=== PATIENT | female | born 1990 | race Caucasian/White ===

== ENCOUNTER 2022-10-31 08:32 | Day surgery (SDC) | payer OTHER ==
[~2022-10-31] VITALS: Ht 167.6 cm; Wt 104.5 kg
--- NOTE | ~2022-10-31 | OR ---
[facility] [address] [place], [place] [address] Draft DATE OF OPERATION: 10/31/2022 SURGEON: Macho Russell DO PREOPERATIVE DIAGNOSIS: Dysmenorrhea. POSTOPERATIVE DIAGNOSIS: Dysmenorrhea, patent fallopian tubes bilaterally. PROCEDURE: Diagnostic laparoscopy and chromotubation. CATHEAD WORKER: Crews. ANESTHESIA: General. COMPLICATIONS: None. BLOOD LOSS: Five mils. FINDINGS: Normal-appearing uterus, bilateral tubes and ovaries. No endometriosis seen overlying bladder in cul-de-sac or bilateral ovarian fossa, mild fatty infiltrates noted on the liver margin, surgically absent gallbladder. No endometriosis lesions on peritoneum or observed on bowel. INDICATIONS: The patient is a 32-year-old female with history of dysmenorrhea, who has been trying to conceive. Risks, benefits, and alternatives to diagnostic laparoscopy with chromotubation were discussed and she elected to proceed. DESCRIPTION OF PROCEDURE: The patient was taken back to the operating room where she was placed under general anesthesia and positioned in dorsal lithotomy. She was prepped and draped in normal sterile fashion. Weighted speculum was placed in the vagina. The anterior lip of the PATIENT NAME: MADONNA CAVAZOS OPERATIVE REPORT DATE OF : 86 REPORT #: [id number] PHYSICIAN: MACHO RUSSELL DO PCP: JUANITO REICH PA-C REPORT IS CONFIDENTIAL AND NOT TO BE RELEASED WITHOUT AUTHORIZATION [facility] [address] [place], [place] [address] Draft cervix was grasped with an Allis clamp and acorn uterine manipulator was placed without difficulty. Surgeon's gloves were changed and attention was turned to the abdomen where incision was made with a scalpel directly infraumbilically through a prior scar after infiltration with local anesthetic. Incision was carried down to the underlying fascia with blunt and sharp dissection with Metzenbaum scissors. Fascia was grasped with hemostats, elevated and incised with Metzenbaum scissors. Stay suture was placed on each superior and inferior margin of the fascia with 0 Vicryl and peritoneum was entered bluntly. Danyell retractor was placed after finger sweep confirmed lack of adhesions and pneumoperitoneum was achieved with CO2 gas. The patient was positioned in Trendelenburg to facilitate better visualization of the pelvis and left lower quadrant 5 mm trocar was placed under direct visualization also after infiltration with local anesthetic without complication. Blunt grasper was used to retract the bowel from the pelvis and pelvis was surveyed with normal findings as noted above. Dilute methylene blue in normal saline was slowly injected through the acorn uterine manipulator with spillage of dye noted at bilateral tubes. All instrumentation was removed. Pneumoperitoneum was evacuated. Fascia was closed with 0 Vicryl in a running fashion. Stay sutures were tied over top of fascial closure. Skin was closed with 4-0 Monocryl and instrumentation was removed from the vagina. Sponge and instrument counts were correct. The patient was taken to recovery in stable and satisfactory condition. DO OLVIN Alvarez/MODL /[id number] Copies: ~ PATIENT NAME: MACYMADONNA ROSE OPERATIVE REPORT DATE OF : 86 REPORT #: [id number] PHYSICIAN: MACHO RUSSELL DO PCP: JUANITO REICH PA-C REPORT IS CONFIDENTIAL AND NOT TO BE RELEASED WITHOUT AUTHORIZATION
[~2022-10-31 08:32] MED LIST: ZOFRAN ODT4 MG PO
--- NOTE | 2022-10-31 11:07 | NUR ---
10/31/22 1107 Sheets,Valeria 1054 PT ARRIVED TO PACU ON 6L VIA MASK, PT ASLEEP AND SNORING NOTED. 1100 PT WOKE TO TACTILE STIMULI AND STARTS REACHING FOR HER FACE. O2 MASK REMOVED. PT REORIENTED TO PACU. PT DENIES PAIN AND NAUSEA.
--- NOTE | 2022-10-31 14:43 | NUR ---
1135: PATIENT BACK IN DAY SURGERY ROOM FROM PACU. RATES PAIN 3/10. DROWSY. ABDOMINAL INCISIONS X 2 WNL. IV SITE WNL. SCDs ON. VS CHECKED. PATIENT GIVEN ICE WATER, CRACKERS AND JELLO. CALLED AND INFORMED THAT PATIENT IS BACK IN DAY SURGERY ROOM. CALL LIGHT WITHIN REACH. 1155: PATIENT TOLERATING WATER, CRACKERS, AND JELLO. MEDICATED FOR PAIN WITH 1 TAB OF NORCO. 1220: ICE PACK PLACED ON ABDOMEN OVER INCISIONS. VS CHECKED. DR. CHAVEZ, AND PATIENT'S MOTHER IN ROOM WITH PATIENT. 1320: VS CHECKED. RATES PAIN 1/10. PATIENT ASSISTED OOB AND TO BATHROOM. GAIT STEADY. VOID WITHOUT DIFFICULTY. GAIT STEADY BACK TO ROOM. DISCHARGE INSTRUCTIONS GIVEN TO PATIENT AND . PATIENT GETTING DRESSED. 1350: IV DC'D WNL. TIP INTACT. DRESSING APPLIED. PATIENT DISCHARGED TO HOME WITH VIA WHEELCHAIR.
== END 2022-10-31 13:50 | disposition home or self-care (01) ==
LOC: OPS 08:32 → DS 08:32 → OPS 09:15 → DS 09:15 → OPS 09:30
PROVIDERS: ATTEND Obstetrics & Gynecology
PROC: 3E0P8KZ Introduction of Other Diagnostic Substance into Female Reproductive, Via Natural or Artificial Opening Endoscopic (ICD-10-PCS; principal; 2022-10-31 09:30)
PROC: 0UJ84ZZ Inspection of Fallopian Tube, Percutaneous Endoscopic Approach (ICD-10-PCS; 2022-10-31 09:30)
DX: N94.6 Dysmenorrhea, unspecified (principal)
CPT/HCPCS: J0131; J1100; J1885; J2001; J2250; J2405; J2704; J7121; Q9968

== ENCOUNTER 2024-01-17 00:03 | Inpatient (IN) | payer OTHER ==
[~2024-01-17] VITALS: Ht 167.6 cm; Wt 139.3 kg
[2024-01-17] MEDS ORDERED: MAGNESIUM HYDROXIDE/AL HYDROX 30 ML CUP PO PRN (00:30)
[2024-01-17] MEDS ORDERED: CALCIUM CARBONATE 500 MG CHEW PO PRN (00:30)
[2024-01-17] MEDS ORDERED: miSOPROStoL 25 MCG TAB PV SCH (00:30)
[2024-01-17] MEDS ORDERED: ondansetron HCL 4 MG/2 ML VIAL IV PRN (00:30)
[2024-01-17] MEDS ORDERED: LACTATED RINGER'S 1,000 ML IV PRN (00:30)
[2024-01-17] MEDS ORDERED: OXYTOCIN/DEXTROSE 5% 20 UNITS/100 ML BAG IV SCH (00:30)
[2024-01-17] MEDS ORDERED: LACTATED RINGER'S 1,000 ML IV SCH (00:30)
[2024-01-17 00:43] VITALS: BP 142/82
[2024-01-17 01:05] LABS: HEMATOCRIT 32.9 % (35.0-50.0); MCH 29.2 (27-36); MCHC 33.3 g/dl (30-36); MCV 87.7 fl (81-99); RBC 3.75 M/ul (4.3-5.7); RDW 14.9 (10.5-15.0)
[2024-01-17 01:21] LABS: AMPHETAMINES, URINE NEGATIVE (NEGATIVE); BARBITURATES, URINE NEGATIVE (NEGATIVE); BENZODIAZEPINE, URINE NEGATIVE (NEGATIVE); BUPRENORPHINE, URINE NEGATIVE (NEGATIVE); CANNABINOID, URINE NEGATIVE (NEGATIVE); COCAINE, URINE NEGATIVE (NEGATIVE); ECSTASY, URINE NEGATIVE (NEGATIVE); FENTANYL, URINE NEGATIVE (NEGATIVE); METHADONE, URINE NEGATIVE (NEGATIVE); OPIATES, URINE NEGATIVE (NEGATIVE); OXYCODONE, URINE NEGATIVE (NEGATIVE); PHENCYCLIDINE, URINE NEGATIVE (NEGATIVE)
[2024-01-17 01:38] LABS: ABO B; ANTIBODY SCREEN NEGATIVE; RH POSITIVE
--- NOTE | 2024-01-17 12:35 | PR ---
[facility] [address] [place], [place] [address] Signed Progress Notes IP Datetime Report Generated by CPN: 01/17/2024 12:35 PROGRESS NOTES: [id number] Impression: Reassuring Heart Rate Procedures: Sterile Vag Exam Plan: Continue Present Management Other Plans: Declines IUPC at this time VITAL SIGNS: [id number] EXAM: [id number] Dilatation: 1.0 Effacement: 50 Station: -3 Contractions: q 1-2 mild MEMBRANES: [id number] Comments: Pt seen and examined. Doing well. Rating contractions as mild. Pelvic exam very uncomfortable. Cx unchanged. Discussed IUPC to help monitor intrauterine pressure and adequacy of contractions. Pt declines at this time. Will be in tub and will consider epidural. FETUS A: [id number] FHR Baseline: 140 Variability: Moderate 6-25bpm Accelerations: 15X15 Decelerations: None FHR Category: Category I Presentation: Vertex Comments on Fetus A: No evidence of metabolic acidosis FETUS B: [id number] Signing Physician: Marcio Crews DO Copies: ~ *Electronically Signed* 01/17/24 5620 MARCIO CREWS (BOBBY) DO PATIENT NAME: MADONNA ERAZO PROGRESS NOTE DATE OF : 86 PHYSICIAN: MARCIO CREWS) DO RPT #: [id number] REPORT IS CONFIDENTIAL AND NOT TO BE RELEASED WITHOUT AUTHORIZATION
[2024-01-17] MEDS ORDERED: BUPIVACAINE HCL 0.5% 30 ML VIAL ONE (13:50)
[2024-01-17] MEDS ORDERED: SODIUM CHLORIDE 0.9% 100 ML IV ONE (13:51)
--- NOTE | 2024-01-17 14:02 | PR ---
[facility] [address] [place], [place] [address] Signed Progress Notes IP Datetime Report Generated by CPN: 01/17/2024 14:02 PROGRESS NOTES: [id number] Impression: Reassuring Heart Rate Procedures: Intrauterine Pressure Catheter; Sterile Vag Exam Plan: Continue Present Management Other Plans: Consider augmentation Informed Consent Obtain: Risks, Benefits and Alternatives Discussed VITAL SIGNS: [id number] EXAM: [id number] Dilatation: 1.5 Effacement: 60 Station: -3 Contractions: Irregular; IUPC placed to better evaluate MEMBRANES: [id number] Comments: Pt seen and examined. Doing well. Contractions mildly uncomfortable. Declines epidural at this time. Cx largely unchanged and station remains high. IUPC placed w/out difficulty after verbal consent obtained. Will monitor closely; consider augmentation if inadequate contractions FETUS A: [id number] FHR Baseline: 140 Variability: Moderate 6-25bpm Accelerations: 15X15 Decelerations: None FHR Category: Category I Presentation: Vertex Comments on Fetus A: No evidence of metabolic acidosis FETUS B: [id number] Signing Physician: Marcio Crews DO Copies: ~ *Electronically Signed* 01/17/24 1402 MARCIO CREWS (BOBBY) DO PATIENT NAME: MADONNA ERAZO PROGRESS NOTE DATE OF : 86 PHYSICIAN: MARCIO CREWS) DO RPT #: [id number] REPORT IS CONFIDENTIAL AND NOT TO BE RELEASED WITHOUT AUTHORIZATION
[2024-01-17] MEDS ORDERED: OXYTOCIN/0.9 % SODIUM CHLORIDE 500 ML IV SCH (15:30)
[2024-01-17] MEDS ORDERED: ROPIVACAINE 0.2% 200 ML BAG ONE (17:50)
[2024-01-17] MEDS ORDERED: BUPIVACAINE HCL 0.25% 10 ML SDV INJ ONE (17:50)
[2024-01-17] MEDS ORDERED: LIDOCAINE HCL 2% 5 ML SDV ONE (17:50)
[2024-01-17] MEDS ORDERED: dexmedeTOMIDine HCl 200 MCG/2 ML VIAL ONE (17:51)
[2024-01-17] MEDS ORDERED: LACTATED RINGER'S 2,000 ML IV ONE (18:45)
[2024-01-17] MEDS ORDERED: ePHEDrine sulfate 5 MG/ML SYRINGE IV PRN (18:45)
[2024-01-17] MEDS ORDERED: ROPIVACAINE 0.2% 200 ML BAG EPIDURAL SCH ×2 (18:45)
[2024-01-17] MEDS ORDERED: LACTATED RINGER'S 500 ML IV PRN (18:45)
--- NOTE | 2024-01-17 18:47 | PR ---
[facility] [address] [place], [place] [address] Signed Progress Notes IP Datetime Report Generated by CPN: 01/17/2024 18:47 PROGRESS NOTES: [id number] Impression: Normal Progression of Labor; Reassuring Heart Rate Procedures: Sterile Vag Exam Plan: Continue Present Management; Augmentation Other Plans: Consider augmentation Informed Consent Obtain: Risks, Benefits and Alternatives Discussed VITAL SIGNS: [id number] EXAM: [id number] Dilatation: 3.0 Effacement: 50 Station: -3 Contractions: Irregular, inadequate MEMBRANES: [id number] Comments: Pt seen and examined. Doing well. Comfortable w/ epidural. FHT reassuring Cat 1. Cx now 3cm. Reviewed anticipated course of labor. Will continue augmentation per protocol. All questions answered. FETUS A: [id number] FHR Baseline: 140 Variability: Moderate 6-25bpm Accelerations: 15X15 Decelerations: None FHR Category: Category I Presentation: Vertex Comments on Fetus A: No evidence of metabolic acidosis FETUS B: [id number] Signing Physician: Marcio Crews DO Copies: ~ *Electronically Signed* 01/17/24 0753 MARCIO CREWS (BOBBY) DO PATIENT NAME: MADONNA ERAZO PROGRESS NOTE DATE OF : 86 PHYSICIAN: MARCIO CREWS (JD) DO RPT #: [id number] REPORT IS CONFIDENTIAL AND NOT TO BE RELEASED WITHOUT AUTHORIZATION
--- NOTE | 2024-01-17 23:14 | PR ---
[facility] [address] [place], [place] [address] Signed Progress Notes IP Datetime Report Generated by CPN: 01/17/2024 23:14 PROGRESS NOTES: [id number] Impression: Normal Progression of Labor; Reassuring Heart Rate Procedures: Sterile Vag Exam Plan: Continue Present Management Other Plans: Consider augmentation Informed Consent Obtain: Risks, Benefits and Alternatives Discussed VITAL SIGNS: [id number] EXAM: [id number] Dilatation: 4.0 Effacement: 70 Station: -3 Contractions: q 3-4 min; adequate MEMBRANES: [id number] Comments: Pt seen and examined. Doing well. Comfortable w/ epidural. 4/70 w/ vertex more engaged. Some caput noted. Contractions adequate. Cat 1 tracing. Plan continued augmentation w/ pitocin. Discussed anticipated course of labor / delivery. All questions answered. FETUS A: [id number] FHR Baseline: 140 Variability: Moderate 6-25bpm Accelerations: 15X15 Decelerations: None FHR Category: Category I Presentation: Vertex Comments on Fetus A: No evidence of metabolic acidosis FETUS B: [id number] Signing Physician: Marcio Crews DO Copies: ~ *Electronically Signed* 01/17/24 6621 MARCIO CREWS (BOBBY) DO PATIENT NAME: MADONNA ERAZO PROGRESS NOTE DATE OF : 86 PHYSICIAN: MARCIO CREWS (JD) DO RPT #: [id number] REPORT IS CONFIDENTIAL AND NOT TO BE RELEASED WITHOUT AUTHORIZATION
[2024-01-18] MEDS ORDERED: ACETAMINOPHEN 500 MG TAB PO PRN (06:15)
--- NOTE | 2024-01-18 07:10 | PR ---
[facility] [address] [place], [place] [address] Signed Progress Notes IP Datetime Report Generated by CPN: 01/18/2024 07:10 PROGRESS NOTES: [id number] Impression: Reassuring Heart Rate Procedures: Sterile Vag Exam Plan: Continue Present Management; Augmentation Other Plans: Consider augmentation Informed Consent Obtain: Risks, Benefits and Alternatives Discussed VITAL SIGNS: [id number] EXAM: [id number] Dilatation: 4.5 Effacement: 70 Station: -3 Contractions: q 5-6 min; inadequate MEMBRANES: [id number] Comments: Pt seen and examined. Doing well. Comfortable w/ contractions. Contractions have been adequate overnight and recently not adequate w/ pitocin. Cx largely unchanged since exam at 23:00. Reviewed clinical situation including EFW. Discussed indications for if necessary and pt and understand and agree. Will monitor closely. All questions answered to best of my ability and to pt's apparent satisfaction. No signs of intraamniotic inflammation / infection. FETUS A: [id number] FHR Baseline: 140 Variability: Moderate 6-25bpm Accelerations: 15X15 Decelerations: Variable FHR Category: Category I Presentation: Vertex Comments on Fetus A: No evidence of metabolic acidosis FETUS B: [id number] Signing Physician: Marcio Crews DO Copies: ~ *Electronically Signed* 01/18/24 0710 MARCIO CREWS (BBOBY) DO PATIENT NAME: MADONNA ERAZO PROGRESS NOTE DATE OF : 86 PHYSICIAN: MARCIO CREWS (JD) DO RPT #: [id number] REPORT IS CONFIDENTIAL AND NOT TO BE RELEASED WITHOUT AUTHORIZATION
[2024-01-18] MEDS ORDERED: dexmedeTOMIDine HCl 200 MCG/2 ML VIAL ONE (08:09)
[2024-01-18] MEDS ORDERED: Ropivacaine HCl 0.5% 30 ML VIAL ONE ×2 (08:09→12:10)
[2024-01-18] MEDS ORDERED: CEFAZOLIN SODIUM 3 GM/30 ML SYR IV SCH (09:21)
[2024-01-18] MEDS ORDERED: AZITHROMYCIN 500 MG in DEXTROSE 5% 250 ML IV ONE (09:30)
[2024-01-18] MEDS ORDERED: SOD+POT BICARB/CITRIC ACID 2 EA TABLET.EFF PO ONE (09:30)
[2024-01-18] MEDS ORDERED: AZITHROMYCIN/DEXTROSE 500 MG/250 ML BAG IV SCH (09:30)
--- NOTE | 2024-01-18 09:39 | PR ---
[facility] [address] [place], [place] [address] Signed Progress Notes IP Datetime Report Generated by CHACHA: 01/18/2024 09:39 PROGRESS NOTES: [id number] Impression: Arrest of Dilatation/Descent; Reassuring Heart Rate Procedures: Sterile Vag Exam Plan: Deliver- Section Other Plans: Consider augmentation Informed Consent Obtain: Section Delivery VITAL SIGNS: [id number] EXAM: [id number] Dilatation: 4.5 Effacement: 70 Station: -3 Contractions: q 5-6 min; inadequate MEMBRANES: [id number] Comments: S: Patient resting comfortably in bed. Sister at bedside. No complaints at this time. O: AFVSS SVE: 4.5/70/-3, molding of the head. FHT: CAT II, toco q 3-4 A/P: Patien well. Discussed with pt regarding the head begin to mould at such a high station with concern for baby not being able to fit through the pelvis she gave verbal understanding. Due to this and lack of change at this time I would recommend a primary section for failure to progress. We discussed the risk of to be damage to any of the surrounding structures and organs suc as the bowel, bladder, uterus, tubes and ovaries. We discussed how such injury could require longer hospital stay. We spoke about hemorrhage and need for possible blood transfusion if hemorrhage was signficant and the risk of transfusion of acquisition of HIV, HepB, HepC or allergic reaction. Only in the even she would need blood to save her life, she is okay with receiving a blood transfusion. We also discussed if hemorrhage could not be controlled, possible need for hysterectomy. And finally we discussed the risk of or maternal for unknown causes. All R/B/A discussed and all questions answered. She agreed to proceed with section. Consent was signed and placed in the chart. Dr. Crews notified. Pitocin to be discontinued. Will proceed with primary section at 11am due to anesthesia availability. FETUS A: [id number] FHR Baseline: 140 Variability: Moderate 6-25bpm *Electronically Signed* 01/18/24 0939 SUNDEEP PEREIRA MD PATIENT NAME: MADONNA ERAZO PROGRESS NOTE DATE OF : 86 PHYSICIAN: SUNDEEP PEREIRA MD RPT #: [id number] REPORT IS CONFIDENTIAL AND NOT TO BE RELEASED WITHOUT AUTHORIZATION [address] [address] Signed Accelerations: 15X15 Decelerations: Late; Variable FHR Category: Category II Presentation: Vertex Comments on Fetus A: No evidence of metabolic acidosis FETUS B: [id number] Signing Physician: Sundeep Pereira MD Copies: ~ *Electronically Signed* 01/18/24 0939 SUNDEEP PEREIRA MD PATIENT NAME: MADONNA ERAZO MARVIN PROGRESS NOTE DATE OF : 86 PHYSICIAN: SUNDEEP PEREIRA MD RPT #: [id number] REPORT IS CONFIDENTIAL AND NOT TO BE RELEASED WITHOUT AUTHORIZATION
[2024-01-18] MEDS ORDERED: MORPHINE SULFATE 1 MG/ML VIAL ONE (10:51)
[2024-01-18] MEDS ORDERED: ondansetron HCL 4 MG/2 ML VIAL ONE (10:52)
[2024-01-18] MEDS ORDERED: DEXAMETHASONE SOD PHOS 4 MG/ML VIAL ONE ×2 (10:52→12:10)
[2024-01-18] MEDS ORDERED: OXYTOCIN 10 UNITS/ML VIAL ONE (10:52)
[2024-01-18] MEDS ORDERED: LIDOCAINE 2% W/ EPI 1:200,000 20 ML SDV ONE (10:52)
[2024-01-18] MEDS ORDERED: TRANEXAMIC ACID 1,000 MG/10 ML AMP ONE (11:44)
[2024-01-18] MEDS ORDERED: PROCHLORPERAZINE EDISYLATE 10 MG/2 ML VIAL IV PRN (12:00)
[2024-01-18] MEDS ORDERED: KETOROLAC TROMETHAMINE 30 MG/ML VIAL IV PRN ×2 (12:00)
[2024-01-18] MEDS ORDERED: IBLOOD GLUCOSE TEST STRIP 1 EA TEST VI PRN (12:00)
[2024-01-18] MEDS ORDERED: NALOXONE HCL 0.4 MG SYR IV PRN ×2 (12:00)
[2024-01-18] MEDS ORDERED: diphenhydrAMINE HCL 50 MG/ML VIAL IV PRN ×2 (12:00)
[2024-01-18] MEDS ORDERED: HYDROmorphone HCL 1 MG/ML SYR IV PRN (12:00)
[2024-01-18] MEDS ORDERED: ondansetron HCL 4 MG/2 ML VIAL IV PRN ×2 (12:00)
[2024-01-18] MEDS ORDERED: SODIUM CHLORIDE 0.9% 20 ML IV ONE ×3 (12:10→12:13)
[2024-01-18] MEDS ORDERED: PROMETHAZINE HCL 25 MG SUPP PR PRN (12:30)
[2024-01-18] MEDS ORDERED: OXYCODONE/APAP 5/325 TAB PO PRN (12:30)
[2024-01-18] MEDS ORDERED: OXYTOCIN/0.9 % SODIUM CHLORIDE 500 ML IV SCH (12:30)
[2024-01-18] MEDS ORDERED: bisacodyL 10 MG SUPP PR PRN (12:30)
[2024-01-18] MEDS ORDERED: METOCLOPRAMIDE HCL 10 MG/2 ML SDV IV PRN (12:30)
[2024-01-18] MEDS ORDERED: PROMETHAZINE HCL 25 MG TAB PO PRN (12:30)
[2024-01-18] MEDS ORDERED: OXYCODONE HCL 5 MG TAB PO PRN (12:30)
[2024-01-18] MEDS ORDERED: metroNIDAZOLE 250 MG TAB PO SCH (12:37)
[2024-01-18] MEDS ORDERED: CEPHALEXIN MONOHYDRATE 500 MG CAP PO SCH (13:00)
--- NOTE | 2024-01-18 13:15 | NUR ---
01/18/24 1315 Sheets,Valeria 1246 PT TO FBC ROOM WITH AND FBC RN AT BEDSIDE. VSS. PT DENIES CONCERNS. EDUCAITON GIVEN ON FUNDAL CHECK AND SPINAL LEVEL. 1258 BABY TO CHEST WITH FBC RN, HOB INCREASED SLIGHTLY. PT DENEIS NAUSEA AND PAIN. PT UNABLE TO MOVE HER LEGS AND EDUCATION GIVEN.
[2024-01-18 13:32] VITALS: BP 101/60
[2024-01-18] MEDS ORDERED: IBUPROFEN 600 MG TAB PO SCH (14:00)
[2024-01-18] MEDS ORDERED: SIMETHICONE 125 MG TABLET CHEWABLE PO SCH (16:00)
[2024-01-18] MEDS ORDERED: KETOROLAC TROMETHAMINE 30 MG/ML VIAL IV SCH (17:30)
[2024-01-18] MEDS ORDERED: ENOXAPARIN SODIUM 40 MG/0.4 ML SYR SUB-Q SCH (21:00)
[2024-01-18] MEDS ORDERED: SENNOSIDES/DOCUSATE 1 EA TAB PO SCH (21:00)
--- NOTE | 2024-01-19 03:30 | PR ---
[facility] [address] [place], [place] [address] Signed PP Progress Notes Datetime Report Generated by CHACHA: 01/19/2024 03:30 SUBJECTIVE: [id number] Pain: Within Normal Limits Nausea/Vomiting: Denies Flatus: Yes Bowel Movement: No Vital Signs: [id number] Vital Signs: Reviewed; Within Normal Limits Cardiovascular: Not Done Respiratory: Not Done Abdomen/Uterus: Normal Lochia: Normal Vulva/Perineum: Not Done Breasts: Not Done CVA Tenderness: Not Done Extremities: Abnormal Incision: Normal Progress: Normal IMPRESSION/PLAN/PROCEDURES: [id number] Impression: Normal Progression Plan: Continue Present Management Procedures: None Progress Notes: S:33 yo s/p primary section for failure to progress. POD/PPD#1. Doing well. Denies OSEGUERA, CP, SOB, F/C, N/V, RUQ pain, changes in vision, vaginal discharge. Tolerating regular diet. Has been up to the bathroom and ambulated in the halls once. Pain well controlled. No concerns or complaints at this time. O: AFVSS Abd: Soft, non-distended, non-tender. Dressing in place with no bleeding noted through the dressing. Fundus firm and two fingers below umbilicus. Musc: SOTO. Mild edema noted in bilateral lower extremities. A/P: 33 yo s/p primary section. POD/PPD#1. Doing well. Will continue postop/ care. Likely discharge home tomorrow AM. Signing Physician: Sundeep Peña MD *Electronically Signed* 01/19/24 0330 SUNDEEP PEÑA MD PATIENT NAME: CASTROMADONNA ROSE PROGRESS NOTE DATE OF : 88 PHYSICIAN: SUNDEEP PEÑA MD RPT #: [id number] REPORT IS CONFIDENTIAL AND NOT TO BE RELEASED WITHOUT AUTHORIZATION
[2024-01-19 05:25] LABS: HEMATOCRIT 27.6 % (35.0-50.0); HEMOGLOBIN 9.1 g/dL (12.0-18.0); MCH 29.3 (27-36); MCHC 32.8 g/dl (30-36); MCV 89.2 fl (81-99); RBC 3.1 M/ul (4.3-5.7); RDW 14.9 (10.5-15.0)
[2024-01-19] MEDS ORDERED: PROCHLORPERAZINE EDISYLATE 10 MG/2 ML VIAL IV PRN (12:00)
[2024-01-19] MEDS ORDERED: IBUPROFEN 600 MG TAB PO SCH (20:00)
--- NOTE | 2024-01-20 11:05 | PR ---
[facility] [address] [place], [place] [address] Signed PP Progress Notes Datetime Report Generated by CHACHA: 01/20/2024 11:05 SUBJECTIVE: [id number] Pain: Abnormal Nausea/Vomiting: Denies Flatus: Yes Bowel Movement: No Vital Signs: [id number] Vital Signs: Reviewed; Within Normal Limits Cardiovascular: Not Done Respiratory: Not Done Abdomen/Uterus: Normal Lochia: Normal Vulva/Perineum: Not Done Breasts: Not Done CVA Tenderness: Not Done Extremities: Normal Incision: Normal Progress: Normal IMPRESSION/PLAN/PROCEDURES: [id number] Impression: Normal Progression Plan: Discharge Procedures: None Progress Notes: S: 33 yo s/p primary LTCS. POD/PPD#2. Doing well. Denies OSEGUERA, CP, SOB, F/C, N/V, RUQ pain, changes in vision, vaginal discharge. Tolerating regular diet, ambulating, voiding own her own, pain controlled. O: AFVSS Abd: Soft, appropriately tender to palpation. Fundus firm and 2 fingers below umbilicus. Incision C/D/I. Kerrick in place. No erythema or drainage. Musc: SOTO. No clubbing or cyanosis. Resolving edema. A/P: 33 yo s/p primary LTCS. POD/PPD#2. Doing well. Meeting all hospital milestones. Will discharge home today. Signing Physician: Paola Peña MD *Electronically Signed* 01/20/24 2271 PAOLA PEÑA MD PATIENT NAME: MADONNA ERAZO PROGRESS NOTE DATE OF : 86 PHYSICIAN: PAOLA PEÑA MD RPT #: [id number] REPORT IS CONFIDENTIAL AND NOT TO BE RELEASED WITHOUT AUTHORIZATION
== END 2024-01-20 13:18 | disposition home or self-care (01) | DRG 788 ==
LOC: FBC 00:03
PROVIDERS: Obstetrics & Gynecology; ADMIT Obstetrics & Gynecology; ATTEND Obstetrics & Gynecology
PROC: 10D00Z1 Extraction of Products of Conception, Low, Open Approach (ICD-10-PCS; principal; 2024-01-17)
DX: O32.4XX0 Maternal care for high head at term, not applicable or unspecified (principal); O69.81X0 Labor and delivery complicated by cord around neck, without compression, not applicable or unspecified; Z37.0 Single live birth; Z3A.39 39 weeks gestation of pregnancy; O99.214 Obesity complicating childbirth; Z90.49 Acquired absence of other specified parts of digestive tract
CPT/HCPCS: 01961; 36415; 76942; 80307; 85027; 86850; 86900; 86901; A9270; J0456; J0690; J1100; J1650; J1885; J2001; J2274; J2405; J2590; J2795; J7121